=== PATIENT | female | born 1970 | race Caucasian/White ===

== ENCOUNTER → 2023-09-07 14:41 | Outpatient (REF) | payer OTHER, SELFPAY | LOC: RCS 14:41 | PROVIDERS: ATTENDING PHYSICIAN Internal Medicine; FAMILY PHYSICIAN Family Medicine | DX: R07.89 Other chest pain (principal); R06.02 Shortness of breath | CPT/HCPCS: 93017 ==

== ENCOUNTER → 2023-11-23 07:25 | Outpatient (REF) | payer OTHER, SELFPAY | LOC: REG 07:25 | PROVIDERS: FAMILY PHYSICIAN Family Medicine | DX: D72.828 Other elevated white blood cell count (principal) | CPT/HCPCS: 36415 ==

== ENCOUNTER → 2024-02-14 10:15 | Outpatient (REF) | payer OTHER, SELFPAY | LOC: PNTC 10:15 | PROVIDERS: ATTENDING PHYSICIAN Obstetrics & Gynecology | DX: O09.819 Supervision of pregnancy resulting from assisted reproductive technology, unspecified trimester (principal); O10.119 Pre-existing hypertensive heart disease complicating pregnancy, unspecified trimester; O99.280 Endocrine, nutritional and metabolic diseases complicating pregnancy, unspecified trimester; O09.519 Supervision of elderly primigravida, unspecified trimester; O99.210 Obesity complicating pregnancy, unspecified trimester | CPT/HCPCS: 36415; 76801; 76813 ==

== ENCOUNTER → 2024-03-14 11:12 | Outpatient (REF) | payer OTHER, SELFPAY | LOC: PNTC 11:12 | PROVIDERS: ATTENDING PHYSICIAN Obstetrics & Gynecology | DX: O09.519 Supervision of elderly primigravida, unspecified trimester (principal); O99.280 Endocrine, nutritional and metabolic diseases complicating pregnancy, unspecified trimester; O09.819 Supervision of pregnancy resulting from assisted reproductive technology, unspecified trimester; O10.119 Pre-existing hypertensive heart disease complicating pregnancy, unspecified trimester; O99.210 Obesity complicating pregnancy, unspecified trimester | CPT/HCPCS: 76805 ==

== ENCOUNTER → 2024-04-18 07:06 | Outpatient (REF) | payer OTHER, SELFPAY | LOC: PNTC 07:06 | PROVIDERS: ATTENDING PHYSICIAN Obstetrics & Gynecology | DX: O09.519 Supervision of elderly primigravida, unspecified trimester (principal); O99.280 Endocrine, nutritional and metabolic diseases complicating pregnancy, unspecified trimester; O09.819 Supervision of pregnancy resulting from assisted reproductive technology, unspecified trimester; O10.119 Pre-existing hypertensive heart disease complicating pregnancy, unspecified trimester; O99.210 Obesity complicating pregnancy, unspecified trimester; I80.8 Phlebitis and thrombophlebitis of other sites; O10.019 Pre-existing essential hypertension complicating pregnancy, unspecified trimester | CPT/HCPCS: 76811 ==

== ENCOUNTER → 2024-05-16 08:31 | Outpatient (REF) | payer OTHER, SELFPAY | LOC: PNTC 08:31 | PROVIDERS: ATTENDING PHYSICIAN Student in an Organized Health Care Education/Training Program | DX: O09.529 Supervision of elderly multigravida, unspecified trimester (principal); O99.210 Obesity complicating pregnancy, unspecified trimester; O16.9 Unspecified maternal hypertension, unspecified trimester; O99.280 Endocrine, nutritional and metabolic diseases complicating pregnancy, unspecified trimester | CPT/HCPCS: 76816 ==

== ENCOUNTER 2024-07-05 10:26 | Observation (INO) | payer OTHER, SELFPAY ==
[2024-07-05] MEDS: TRANDATE 200 MG PO (10:51)
[2024-07-05 11:04] LABS: Hematocrit 36.8 % (37.0-47.0); Hemoglobin 12.4 g/dL (12.0-16.0); Mean Corp Hgb Conc. 33.7 g/dL (33.0-37.0); Mean Corpuscular Hgb 33.9 pg (27.0-31.0); Mean Corpuscular Volume 100.5 fL (81.0-99.0); Mean Platelet Volume 10.7 fL (7.4-10.4); Platelet Count 199 10^3/uL (130-400); Red Blood Cell Count 3.66 10^6/uL (4.20-5.40); Red Cell Dist. Width 13.2 % (11.5-14.5); White Blood Cell Count 8.1 10^3/uL (4.8-10.8)
[2024-07-05 11:05] VITALS: BP 132/69; BMI 40.2
[2024-07-05 11:21] LABS: ALT (SGPT) 37 U/L (0-35); AST (SGOT) 37 U/L (14-36); Albumin 3.1 g/dl (3.5-5.0); Alkaline Phosphatase 79 U/L (38-126); Blood Urea Nitrogen 7 mg/dl (7-17); Calcium 9.2 mg/dl (8.4-10.2); Carbon Dioxide 24 mmol/L (22-30); Chloride 104 mmol/L (98-107); Estimated Creatinine Clearance > 125 ml/min; Glucose 89 mg/dl (70-99); Sodium 135 mmol/L (135-145); Total Bilirubin 0.5 mg/dl (0.2-1.3); Total Protein 5.7 g/dl (6.3-8.2); eGFR > 60.00
[2024-07-05 11:54] LABS: Urine Protein 8 mg/dl
== END 2024-07-05 12:30 | disposition home or self-care (01) ==
LOC: PNTC-IN 10:26
PROVIDERS: ADMITTING PHYSICIAN Obstetrics & Gynecology; ATTENDING PHYSICIAN Student in an Organized Health Care Education/Training Program
DX: O10.013 Pre-existing essential hypertension complicating pregnancy, third trimester (principal); O09.523 Supervision of elderly multigravida, third trimester; O99.213 Obesity complicating pregnancy, third trimester; O09.813 Supervision of pregnancy resulting from assisted reproductive technology, third trimester; Z3A.32 32 weeks gestation of pregnancy
CPT/HCPCS: 59025; 80053; 82570; 84156; 85027; G0378

== ENCOUNTER → 2024-07-09 09:51 | Outpatient (REF) | payer OTHER, SELFPAY | LOC: PNTC 09:51 | PROVIDERS: ATTENDING PHYSICIAN Obstetrics & Gynecology | DX: O09.819 Supervision of pregnancy resulting from assisted reproductive technology, unspecified trimester (principal); O99.280 Endocrine, nutritional and metabolic diseases complicating pregnancy, unspecified trimester | CPT/HCPCS: 59025 ==

== ENCOUNTER → 2024-07-12 10:01 | Outpatient (REF) | payer OTHER, SELFPAY | LOC: PNTC 10:01 | PROVIDERS: ATTENDING PHYSICIAN Student in an Organized Health Care Education/Training Program | DX: O99.210 Obesity complicating pregnancy, unspecified trimester (principal); O09.529 Supervision of elderly multigravida, unspecified trimester | CPT/HCPCS: 59025 ==

== ENCOUNTER → 2024-07-16 10:24 | Outpatient (REF) | payer OTHER, SELFPAY | LOC: PNTC 10:24 | PROVIDERS: ATTENDING PHYSICIAN Obstetrics & Gynecology | DX: O09.819 Supervision of pregnancy resulting from assisted reproductive technology, unspecified trimester (principal); O99.280 Endocrine, nutritional and metabolic diseases complicating pregnancy, unspecified trimester | CPT/HCPCS: 59025 ==

== ENCOUNTER → 2024-07-19 09:46 | Outpatient (REF) | payer OTHER, SELFPAY | LOC: PNTC 09:46 | PROVIDERS: ATTENDING PHYSICIAN Student in an Organized Health Care Education/Training Program | DX: O99.210 Obesity complicating pregnancy, unspecified trimester (principal); O09.529 Supervision of elderly multigravida, unspecified trimester | CPT/HCPCS: 59025 ==

== ENCOUNTER → 2024-07-23 09:50 | Outpatient (REF) | payer OTHER, SELFPAY | LOC: PNTC 09:50 | PROVIDERS: ATTENDING PHYSICIAN Obstetrics & Gynecology | DX: O09.519 Supervision of elderly primigravida, unspecified trimester (principal) | CPT/HCPCS: 59025 ==

== ENCOUNTER 2024-07-27 09:47 | Observation (INO) | payer OTHER, SELFPAY ==
[2024-07-27 10:37] VITALS: BP 111/68; BMI 42.1
== END 2024-07-27 12:22 | disposition home or self-care (01) ==
LOC: LDRP 09:47
PROVIDERS: ADMITTING PHYSICIAN Obstetrics & Gynecology
DX: O32.1XX0 Maternal care for breech presentation, not applicable or unspecified (principal); Z3A.35 35 weeks gestation of pregnancy
CPT/HCPCS: 76815; 76819; G0378

== ENCOUNTER → 2024-07-30 10:13 | Outpatient (REF) | payer OTHER, SELFPAY | LOC: PNTC 10:13 | PROVIDERS: ATTENDING PHYSICIAN Obstetrics & Gynecology | DX: O09.819 Supervision of pregnancy resulting from assisted reproductive technology, unspecified trimester (principal); E03.9 Hypothyroidism, unspecified; O99.280 Endocrine, nutritional and metabolic diseases complicating pregnancy, unspecified trimester; O10.019 Pre-existing essential hypertension complicating pregnancy, unspecified trimester | CPT/HCPCS: 59025 ==

== ENCOUNTER → 2024-08-06 10:17 | Outpatient (REF) | payer OTHER, SELFPAY | LOC: PNTC 10:17 | PROVIDERS: ATTENDING PHYSICIAN Obstetrics & Gynecology | DX: O09.819 Supervision of pregnancy resulting from assisted reproductive technology, unspecified trimester (principal); O99.280 Endocrine, nutritional and metabolic diseases complicating pregnancy, unspecified trimester | CPT/HCPCS: 59025 ==

== ENCOUNTER → 2024-08-06 12:10 | Outpatient (REF) | payer OTHER, SELFPAY | LOC: RAD 12:10 | PROVIDERS: ATTENDING PHYSICIAN Obstetrics & Gynecology; FAMILY PHYSICIAN Family Medicine | DX: O09.523 Supervision of elderly multigravida, third trimester (principal) | CPT/HCPCS: 76819 ==

== ENCOUNTER → 2024-08-09 09:41 | Outpatient (REF) | payer OTHER, SELFPAY | LOC: PNTC 09:41 | PROVIDERS: ATTENDING PHYSICIAN Student in an Organized Health Care Education/Training Program | DX: O09.529 Supervision of elderly multigravida, unspecified trimester (principal); O99.210 Obesity complicating pregnancy, unspecified trimester | CPT/HCPCS: 59025 ==

== ENCOUNTER → 2024-08-13 10:20 | Outpatient (REF) | payer OTHER, SELFPAY | LOC: PNTC 10:20 | PROVIDERS: ATTENDING PHYSICIAN Obstetrics & Gynecology | DX: O09.819 Supervision of pregnancy resulting from assisted reproductive technology, unspecified trimester (principal); E05.90 Thyrotoxicosis, unspecified without thyrotoxic crisis or storm | CPT/HCPCS: 59025 ==

== ENCOUNTER 2024-08-13 20:18 | Inpatient (IN) | payer OTHER, SELFPAY ==
[2024-08-13 21:11] VITALS: BP 129/73; BMI 41.2
[2024-08-13 21:46] LABS: % Basophils 0.2 % (0-2); % Immature Granulocytes 0.3 % (0-0.5); % Monocytes 7.3 % (1.7-9.3); % Neutrophils 63.2 % (42.2-75.2); Absolute Eosinophils 0.1 10^3/uL (0-0.7); Absolute Lymphocytes 2.5 10^3/uL (1.2-3.4); Absolute Monocytes 0.7 10^3/uL (0.1-0.6); Absolute Neutrophils 5.7 10^3/uL (1.4-6.5); Hematocrit 36.4 % (37.0-47.0); Hemoglobin 12.2 g/dL (12.0-16.0); Mean Corp Hgb Conc. 33.5 g/dL (33.0-37.0); Mean Corpuscular Hgb 33.4 pg (27.0-31.0); Mean Corpuscular Volume 99.7 fL (81.0-99.0); Nucleated Red Blood Cells % 0 %; Platelet Count 214 10^3/uL (130-400); Red Blood Cell Count 3.65 10^6/uL (4.20-5.40); Red Cell Dist. Width 13.4 % (11.5-14.5)
[2024-08-13] MEDS: CYTOTEC 50 MICROGRAM VAG (21:47)
[2024-08-13 22:03] LABS: ALT (SGPT) 34 U/L (0-35); AST (SGOT) 41 U/L (14-36); Albumin 3.2 g/dl (3.5-5.0); Alkaline Phosphatase 130 U/L (38-126); Blood Urea Nitrogen 16 mg/dl (7-17); Calcium 9.6 mg/dl (8.4-10.2); Carbon Dioxide 21 mmol/L (22-30); Chloride 104 mmol/L (98-107); Estimated Creatinine Clearance 113 ml/min; Glucose 87 mg/dl (70-99); Potassium 4.3 mmol/L (3.5-5.1); Sodium 132 mmol/L (135-145); Total Bilirubin 0.7 mg/dl (0.2-1.3); Total Protein 5.9 g/dl (6.3-8.2); eGFR > 60.00
[2024-08-13] MEDS: VALTREX 500 MG PO (22:37)
[2024-08-14] MEDS: LR 1000 IV ×3 (03:10→15:08)
[2024-08-14] MEDS: SYNTHROID 50 MCG PO (06:22)
[2024-08-14] MEDS: PLAQUENIL 200 MG PO ×2 (08:11→20:11)
[2024-08-14] MEDS: TRANDATE 200 MG PO ×2 (08:11→20:11)
[2024-08-14] MEDS: VALTREX 500 MG PO (08:11)
[2024-08-14] MEDS: BICITRA 30 ML PO (09:54)
[2024-08-14] MEDS: TYLENOL 1000 MG PO (09:54)
[2024-08-14] MEDS: ANCEF 10 IV (09:56)
[2024-08-14] MEDS: ZOFRAN 4 MG IV (15:08)
[2024-08-14] MEDS: PITOCIN 30 UNITS/NSS 500 ML IV (15:09)
[2024-08-14] MEDS: BENADRYL 25 MG IV (16:22)
[2024-08-14] MEDS: TORADOL 15 MG IV ×2 (17:41→23:43)
--- NOTE | 2024-08-14 18:30 | OR.RPT ---
Operative Report
Operative Report
Preop diagnosis: IUP @38.2, non-reassuring heart tones, intolerance of labor, AMA, cHTN, BMI 40
Postop diagnosis: same
Procedure: Primary low transverse section
Surgeon: Nithin
Anesthesia: Spinal
QBL: 245mL
Complications: none
Graham catheter draining clear urine before and after the procedure
Findings: viable female infant born at 1123, Apgars 8/9, normal appearing uterus, bilateral fallopian tubes and ovaries. Uterus slightly boggy at the end of the procedure. Cytotec 800mcg NM given. Uterus firm with minimal bleeding on fundal prior to
leaving the OR.
Indication: Patient is a 54yo at 38.2 who presents to Labor and Delivery for induction of labor for chronic hypertension and advanced maternal age. Her induction was started with 50mcg of Cytotec PV. Overnight, FHT were intermittently with
prolonged and late decelerations. Her cervix remained closed. Pitocin was ordered, but not able to be started secondary to intermittent category 2 tracing. Discussed with patient that there is intolerance of labor and she is remote from
delivery so primary section was recommended. Risks, benefits and alternatives were discussed with patient and all questions were answered. Consents were signed. Anesthesia was notified.
Procedure: Patient was taken to the operating room where spinal anesthesia was administered and found to be adequate. 2g of Ancef was given for antibiotic prophylaxis. The pannus was taped up with Ioban. The abdomen was prepped with ChloraPrep. The
patient was draped in the normal sterile fashion. She was placed in the dorsal supine position with a left lateral tilt. A Pfannenstiel incision was made with a 10 blade and carried down to the fascia with a scalpel. Hemostasis achieved with Bovie.
The fascia was incised and dissected laterally with Terry scissors. The superior aspect of the fascia was grasped with Katie clamps. The underlying rectus fascia was sharply dissected with Terry scissors. In a similar fashion the inferior aspect of
the fascia was elevated with Katie clamps and the rectus muscle was dissected off with Terry scissors. The rectus muscles were down the midline to the level of the pubic symphysis with manual dissection. The peritoneum was bluntly entered
and extended using manual traction and Metzenbaum scissors.
Gooden retractor and bladder blade were placed revealing good visualization of the bladder. The vesicouterine peritoneum was identified. A thin lower uterine segment was noted. The lower uterine segment was incised with a scalpel. Copious amount
of clear fluid noted at entry into the cavity. The uterine incision was extended bluntly with lateral and upward traction.
The fetus was in cephalic presentation. The head was elevated out of the pelvis with special attention paid to avoid using the uterine incision as a fulcrum. Gentle fundal pressure was applied one the head was brought to the incision. The head
delivered through the hysterotomy and the rest of the delivered without difficulty. Delayed cord clamping was performed. Cord gases were collected. The was handed off to the cigarette stamper. IV oxytocin was started to facilitate uterine
contractions. The placenta was manually extracted and sent to pathology for evaluation. The uterus was exteriorized. Allis clamps were placed at the apices of the hysterotomy. The inside of the uterus was wiped with a lap sponge to assure complete
removal of placental membranes. Fundal massage was performed and uterus noted to be firm. The uterine incision was closed with 0 Vicryl in a running locked fashion. A horizontal imbricating stitch was done on the hysterotomy with 0 Vicryl. The
hysterotomy was inspected and noted to be hemostatic. The uterus was placed back in the abdomen. Blood clots and fluid were wiped out of the abdomen and pelvis with moist laparotomy sponges. The hysterotomy was examined again and noted to be
hemostatic.
The rectus muscles were inspected and noted to be hemostatic. The fascial layer was closed in a running continuous fashion using 1 PDS. The subcutaneous tissue was copiously irrigated and any small bleeding vessels were cauterized with Bovie
cautery. The subcutaneous tissue was reapproximated in a running continuous fashion with 2-0 Plain. The skin was closed with 4-0 Vicryl in a subcuticular fashion. The incision was covered with skin glue and Prima Seal dressing. The patient tolerated
the procedure well. All sponge and instrument counts were correct times two. The uterus was slightly boggy after the procedure. 800mcg Cytotec given NM. There was minimal bleeding on fundal check. The patient was taken to the recovery room in stable
condition.
--- NOTE | 2024-08-14 19:13 | HPS.HSE ---
Family Physician
-
Family Physician: INTERVIEWE UNKNOWN - PT NOT
Chief Complaint
-
induction of labor
History of Present Illness
Patient is a 54yo who presented to Labor and Delivery for IOL for AMA and cHTN. She had no complaints on admission. Her induction was started with Cytotec 50mcg PV. There was intolerance of labor and section was recommended.
complications:
- IVF with egg donor
- hypothyroidism
- HSV
- autoimmune disorder
- superficial thrombophlebitis, was on Lovenox
- cHTN, on labetalol
- BMI 40
- AMA
PN labs Apos ab neg, cbc nml, Hepbsag neg, Hepc ab neg, HGIV neg, Rub im, RPR NR, nml gtt, gc/chlam/gbs neg, Rub Im
PMHx: hypothyroidism, varicose veins, HSV, autoimmune disorder, superficial thrombophlebitis, cHTN, obesity
Meds: ASA 81mg daily, VitD3, Lovenox 60mg qAM/40mg qPM, hydroxycholoquine 200mg BID, labetalol 200mg BID, Synthroid 50mcg, Metformin 500mg BID, PNV, vitamin E
Surghx: cholecystectomy, D&C
NKDA
Socialhx: denies tobacco, etoh or illicit drug use
Famhx: Mother w/ HTN, DVT, Father w/ HTN, LA, and stroke, maternal grandfather w/ colon cancer
OBHx: , SABx7
Medical History
Past Medical History
Past Medical History: Reports Hypothyroidism
Additional Past Medical History:
hypothyroidism, varicose veins, HSV, autoimmune disorder, superficial thrombophlebitis, cHTN, obesity
Past Surgical History: Reports Cholecystectomy and Gynocological
Additional Past Surgical History:
cholecytectomy, D&C
Social History
Tobacco: Non-smoker
Alcohol: None
Drug: None
Family History
Family History: Cancer and Hypertension
Allergies / Home Medications
Allergies reflects when Allergies were last updated in [facility].
Home Medications with original date entered in [facility]
Allergy/Medication List:
Meds: ASA 81mg daily, VitD3, Lovenox 60mg qAM/40mg qPM, hydroxycholoquine 200mg BID, labetalol 200mg BID, Synthroid 50mcg, Metformin 500mg BID, PNV, vitamin E
NKDA
Review of Systems
-
A 12 point ROS was completed and negative except as noted: Yes
Physical Exam
Vital Signs
Vital Signs
Temp Pulse Resp BP
97.9 F 79 16 144/88
08/13/24 21:11 08/14/24 08:11 08/13/24 21:11 08/14/24 08:11
Physical Exam
General: Well Developed and Well Nourished
HEENT: NormoCephalic
Respiratory: Non Labored Respirations
Cardiac: Regular Rhythm
GI: Non Tender
Skin: Warm and Dry
Neuro: Awake, Alert and Oriented
Psych: Calm
Laboratory Results
-
08/13/24 21:30
08/13/24 21:30
Laboratory Results
Total Bilirubin 0.7 mg/dl (0.2-1.3) 08/13/24 21:30
AST 41 U/L (14-36) H 08/13/24 21:30
ALT 34 U/L (0-35) 08/13/24 21:30
Alkaline Phosphatase 130 U/L (38-126) H 08/13/24 21:30
Impression/Plan
-
IMPRESSION:
Patient is a 54yo @38.2 who presented to Labor and Delivery for IOL for AMA and cHTN
PLAN:
- IOL was started with Cytotec 50mcg PV
- There was intolerance of labor with an intermittent category 2 tracing with prolonged decelerations and late decelerations. She was remote from delivery with inability to start Pitocin. Primary section was recommended. Risks,
benefits, and alternatives discussed including bleeding, infection, damage to surround structure and need for future operations. Consents were signed and anethesia notified
- 2g of Ancef ordered for antibiotic prophylaxis
[2024-08-14] MEDS: GLUCOPHAGE PO (21:42)
--- NOTE | 2024-08-15 02:49 | DOWNTIME ---
There was a [employer] Client Voice Professor Downtime on 08/15/2024 from 0100 to 08/15/2023 at 0235 . Downtime documentation of patient's care, including medication administrations, has been reconciled in the electronic record per guidelines. Refer to the
patient's paper chart under the miscellaneous tab to see printed paper medication records and downtime forms.
[2024-08-15] MEDS: SYNTHROID 50 MCG PO (06:00)
[2024-08-15] MEDS: TORADOL 15 MG IV ×2 (06:00→11:42)
[2024-08-15 06:27] LABS: Hematocrit 35.8 % (37.0-47.0); Hemoglobin 11.9 g/dL (12.0-16.0); Mean Corp Hgb Conc. 33.2 g/dL (33.0-37.0); Mean Corpuscular Hgb 33.3 pg (27.0-31.0); Mean Corpuscular Volume 100.3 fL (81.0-99.0); Mean Platelet Volume 10.8 fL (7.4-10.4); Platelet Count 201 10^3/uL (130-400); Red Blood Cell Count 3.57 10^6/uL (4.20-5.40); Red Cell Dist. Width 13.5 % (11.5-14.5); White Blood Cell Count 9.1 10^3/uL (4.8-10.8)
[2024-08-15 07:14] LABS: ALT (SGPT) 33 U/L (0-35); AST (SGOT) 54 U/L (14-36); Albumin 2.7 g/dl (3.5-5.0); Alkaline Phosphatase 102 U/L (38-126); Blood Urea Nitrogen 17 mg/dl (7-17); Calcium 8.9 mg/dl (8.4-10.2); Carbon Dioxide 23 mmol/L (22-30); Chloride 104 mmol/L (98-107); Estimated Creatinine Clearance 99 ml/min; Glucose 83 mg/dl (70-99); Potassium 3.9 mmol/L (3.5-5.1); Sodium 132 mmol/L (135-145); Total Bilirubin 0.7 mg/dl (0.2-1.3); Total Protein 5.2 g/dl (6.3-8.2); eGFR > 60.00
--- NOTE | 2024-08-15 07:56 | W.PN.ANS.POP ---
Anesthesia Post Operative
- Anesthesia Post Op Note
Vital Signs Stable-See Nursing Note: Yes
Airway Patent: Yes
Adequate Pain Control: Yes
Change in Mental Status: No
Current Postoperative Nausea & Vomiting: No
Anesthesia Complications: No
General Anesthetic Recall: No
Unplanned Admission: No
Post Op Hydration Adequate: Yes
[2024-08-15] MEDS: LOVENOX 60 MG SC (08:17)
[2024-08-15] MEDS: TRANDATE 200 MG PO ×2 (08:17→20:58)
[2024-08-15] MEDS: SENOKOT-S 1 TABLET PO (08:18)
[2024-08-15] MEDS: VITAMIN D3 (cholecalciferol) 125 MCG PO (08:18)
[2024-08-15] MEDS: PLAQUENIL 200 MG PO ×2 (08:18→20:58)
[2024-08-15] MEDS: GLUCOPHAGE 500 MG PO ×2 (08:19→20:58)
--- NOTE | 2024-08-15 14:39 | CM ---
Met with new parents Svetlana and Kyle at bedside
Parents report they have named their Noemy Mota
Mom reports she plans to breast feed and will need a breast pump
Mom reports she has supplies for infant including car seat and crib
Mom reports she has support from /family/friends
Mom given breast pump information/order form to review
CM will check back with mom regarding ordering breast pump
Plan - CM will f/u with Mom regarding breast pump order
[2024-08-15] MEDS: LOVENOX 40 MG SC (17:28)
[2024-08-15] MEDS: TYLENOL 650 MG PO ×2 (17:29→23:55)
[2024-08-15] MEDS: MOTRIN 600 MG PO ×2 (17:30→23:56)
[2024-08-16] MEDS: SYNTHROID 50 MCG PO (06:21)
[2024-08-16] MEDS: TYLENOL 650 MG PO ×3 (06:25→23:45)
[2024-08-16] MEDS: MOTRIN 600 MG PO ×3 (06:25→23:45)
[2024-08-16] MEDS: LOVENOX 60 MG SC (08:12)
[2024-08-16 08:35] LABS: ALT (SGPT) 41 U/L (0-35); AST (SGOT) 64 U/L (14-36)
[2024-08-16] MEDS: TRANDATE 200 MG PO ×2 (08:47→20:06)
[2024-08-16] MEDS: SENOKOT-S 1 TABLET PO (08:48)
[2024-08-16] MEDS: VITAMIN D3 (cholecalciferol) 125 MCG PO (08:48)
[2024-08-16] MEDS: PLAQUENIL 200 MG PO ×2 (08:48→20:06)
[2024-08-16] MEDS: GLUCOPHAGE 500 MG PO ×2 (08:50→20:06)
--- NOTE | 2024-08-16 11:16 | CM ---
Addendum entered by Enedina Lake 08/16/24 14:40:
Met with parents at bedside with
Mom discussed breast pump options with - mom requesting the Spectra 2 pump
Rx and face sheet faxed to [facility] - [phone]
Spoke with Hina at [facility] - aware of order
Original Note:
Spoke with Mom Svetlana
Discussed breast pump - mom reports she has not made a decision regarding breast pump - will f/u later today
Parents plan to have follow at [facility]
[2024-08-16] MEDS: LOVENOX 40 MG SC (18:15)
[2024-08-17 04:36] LABS: % Basophils 0.5 % (0-2); % Eosinophils 3.4 % (0-6); % Immature Granulocytes 0.3 % (0-0.5); % Lymphocytes 40.2 % (20.5-51.1); % Monocytes 9.2 % (1.7-9.3); % Neutrophils 46.4 % (42.2-75.2); Absolute Eosinophils 0.2 10^3/uL (0-0.7); Absolute Lymphocytes 2.4 10^3/uL (1.2-3.4); Absolute Monocytes 0.5 10^3/uL (0.1-0.6); Absolute Neutrophils 2.7 10^3/uL (1.4-6.5); Hematocrit 32.4 % (37.0-47.0); Hemoglobin 10.9 g/dL (12.0-16.0); Mean Corp Hgb Conc. 33.6 g/dL (33.0-37.0); Mean Corpuscular Hgb 34.2 pg (27.0-31.0); Mean Corpuscular Volume 101.6 fL (81.0-99.0); Mean Platelet Volume 11.2 fL (7.4-10.4); Nucleated Red Blood Cells % 0 %; Platelet Count 175 10^3/uL (130-400); Red Blood Cell Count 3.19 10^6/uL (4.20-5.40); Red Cell Dist. Width 13.8 % (11.5-14.5); White Blood Cell Count 5.9 10^3/uL (4.8-10.8)
[2024-08-17 04:59] LABS: ALT (SGPT) 38 U/L (0-35); AST (SGOT) 48 U/L (14-36)
[2024-08-17] MEDS: SYNTHROID 50 MCG PO (06:08)
[2024-08-17] MEDS: TYLENOL 650 MG PO (06:09)
[2024-08-17] MEDS: MOTRIN 600 MG PO (06:09)
--- NOTE | 2024-08-17 07:37 | W.DS.TRANS ---
DC Summary - [employer]
-
Discharge Instructions:
Discharge Diagnosis/Procedures Advanced maternal age; IVF ;HX
superficial thrombophlebitis; 38w2d;
Induction of labor, epidural, Nonreassuring
heart rate/ intolerance of labor,
Primary low transverse section,
elevated LFTs
Diet Regular
Activity No strenuous activity
Driving Restrictions No driving for 2 weeks
Bathing Restrictions OK to Shower
Instructions:
Stand-Alone Forms: [facility] Delivery
Changes to Home Medications: No
Discharge Medications:
DC Medications w/original date entered in [facility]
cholecalciferol (vitamin D3) 125 mcg (5,000 unit) tablet (Vitamin D3) 125 mcg PO DAILY 07/05/24
enoxaparin 40 mg/0.4 mL subcutaneous syringe (Lovenox) 40 mg SC DAILY 07/05/24
enoxaparin 60 mg/0.6 mL subcutaneous syringe (Lovenox) 60 mg SC DAILY 07/05/24
hydroxychloroquine 200 mg tablet 200 mg PO BID 07/05/24
labetalol 200 mg tablet 200 mg PO BID 07/05/24
levothyroxine 50 mcg tablet 50 mcg PO DAILY 07/05/24
metformin 500 mg tablet 500 mg PO BID 07/05/24
prenat.vits,roderick,ezt-ojnm-afgjr 1 tab DAILY 07/05/24
vitamin E 400 unit tablet 45 mg PO DAILY 07/05/24
ibuprofen 600 mg tablet 600 mg PO Q6HPRN PRN cramps #90 tabs 08/17/24
labetalol 200 mg tablet 200 mg PO BID #90 tabs 08/17/24
Home Medication Changes
Pending Results: No
Additional Pending Results:
placenta
Total time spent discharging patient (in min): 20
[2024-08-17] MEDS: TRANDATE 200 MG PO (07:51)
[2024-08-17] MEDS: PLAQUENIL 200 MG PO (07:52)
[2024-08-17] MEDS: VITAMIN D3 (cholecalciferol) 125 MCG PO (07:52)
[2024-08-17] MEDS: GLUCOPHAGE 500 MG PO (07:52)
[2024-08-17] MEDS: SENOKOT-S 1 TABLET PO (07:53)
[2024-08-17] MEDS: LOVENOX 60 MG SC (07:54)
[2024-08-17 13:48] LABS: Syphilis/T. pallidum Ab Reflex Negative (Negative)
== END 2024-08-17 14:48 | disposition home or self-care (01) | DRG 787 ==
LOC: LDRP 20:18
PROVIDERS: Obstetrics & Gynecology; Student in an Organized Health Care Education/Training Program; ADMITTING PHYSICIAN Obstetrics & Gynecology
PROC: 3E0P7VZ Introduction of Hormone into Female Reproductive, Via Natural or Artificial Opening (ICD-10-PCS; 2024-08-13)
PROC: 4A1HXCZ Monitoring of Products of Conception, Cardiac Rate, External Approach (ICD-10-PCS; 2024-08-13)
PROC: 10D00Z1 Extraction of Products of Conception, Low, Open Approach (ICD-10-PCS; 2024-08-14)
DX: O10.92 Unspecified pre-existing hypertension complicating childbirth (principal); O87.0 Superficial thrombophlebitis in the puerperium; O99.12 Other diseases of the blood and blood-forming organs and certain disorders involving the immune mechanism complicating childbirth; O98.52 Other viral diseases complicating childbirth; Z37.0 Single live birth; O76 Abnormality in fetal heart rate and rhythm complicating labor and delivery; O99.214 Obesity complicating childbirth; O99.284 Endocrine, nutritional and metabolic diseases complicating childbirth; E03.9 Hypothyroidism, unspecified; O87.4 Varicose veins of lower extremity in the puerperium; B00.9 Herpesviral infection, unspecified; D89.89 Other specified disorders involving the immune mechanism, not elsewhere classified; Z3A.38 38 weeks gestation of pregnancy; Z79.01 Long term (current) use of anticoagulants
CPT/HCPCS: 88307; 36415; 80053; 84450; 84460; 85025; 85027; 86780; 86850; 86900; 86901

== ENCOUNTER 2024-08-18 20:46 | Emergency (ER) | payer OTHER, SELFPAY ==
[2024-08-18 20:59] VITALS: BP 146/92
--- NOTE | 2024-08-18 22:45 | ED.GENMED ---
History of Present Illness
General
Chief Complaint: Problems
Source: patient
Exam Limitations: none
Time Seen by Provider: 08/18/24 21:19
Nursing documentation reviewed up to this point in time: agreed with
History of Present Illness
History of Present Illness:
54 yo female presents emergency department due to concerns that her wound is draining and that her abdomen feels full. She notes some bruising but it is likely from her Lovenox.
Past History
Past History
ED Past Medical History: HTN
ED Past Surgical History: Cholecystectomy, , Gynecological (IVF) and Other (Varicose veins)
Social History
Tobacco: Non-smoker
Alcohol: Occasional
Personal:
Living: with family
Family History
Family History: CAD
Review of Systems
Review of Systems
Allergies reviewed?: Yes
All Other Systems: Not applicable
Constitutional: Reports no symptoms
EENT: Reports no symptoms
Respiratory: Reports no symptoms
Cardiac: Reports no symptoms
ABD/GI: Reports other (Abdominal swelling and bruising)
: Reports no symptoms
Musculoskeletal: Reports no symptoms
Skin: Reports no symptoms
Neurological: Reports no symptoms
Endocrine: Reports no symptoms
Hematologic/Lymphatic: Reports no symptoms
Psychiatric: Reports no symptoms
Phy Exam
Physical Exam
Physical Exam:
Physical Exam
General: no apparent distress, not acutely ill
Neck: supple. no meningeal signs. normal posterior pharynx
Heart: s1/s2 regular rate and rhythm, no murmur. equal radial
pulses.
HEENT: Pupils equal round reactive to light, EOMI
Lungs: no acute respiratory distress. clear bilaterally
Abdomen: normal bowel sounds. not tender. no CVAT
Neuro: alert and oriented. no focal neurological deficits cranial nerves II through XII intact
Skin: no rash, ecchymosis lower abdomen, site of Lovenox shots, incision clean dry and intact
Psychiatric: well kept. interactive and cooperative
Extremities: no edema. no calf tenderness. negative homans. good distal pulses
Course
Vital Signs
Initial and Last Documented VS:
Initial Vital Signs
Temp Pulse Resp BP Pulse Ox
98.6 F 84 20 146/92 98
08/18/24 20:59 08/18/24 20:59 08/18/24 20:59 08/18/24 20:59 08/18/24 20:59
Last Documented Vital Signs
Temp Pulse Resp BP Pulse Ox
98.6 F 84 20 146/92 98
08/18/24 20:59 08/18/24 20:59 08/18/24 20:59 08/18/24 20:59 08/18/24 20:59
Information
Weeks gestation: N/A
Location: N/A
MDM/Problems Addressed
Differential Diagnosis Includes:
Wound dehiscence, seroma
MDM/Problems Addressed:
54-year-old female with wound check, no signs of infection or dehiscence. Stable for discharge.
Chronic conditions affecting care: Previous abdomnial surgery
Acute Exacerbation and/or Progression of Chronic Illness: Previous abdomnial surgery
*Pulse Oximetry
Patient hypoxic: no
*Critical Care Note
Total Time (30-74mins, 75-104mins- exclusive of procedures): Not Applicable
Patient Management
Social determinants of health affecting care: Living situation
Discussion with other providers: Logistics Assistant (Discussed with Dr. Brown, DIRECTOR DIVERSITY, who recommends discharge and outpatient follow-up)
Escalation/DeEscalation of care consider admission/obs:
Admit not indicated
ED Attending Note
-
Portions of this chart may have been created with voice recognition software.� Occasional wrong word or��sound alike� substitutions may have occurred due to the inherent limitations of voice recognition software.
Discharge Plan
Departure
Patient Disposition: Home (Routine Discharge)
Date of Disposition: 08/18/24
Time of Disposition: 23:28
Patient with high blood pressure during this ER visit?: Yes
Condition: Good
Discharge Problem:
Encounter for postoperative wound check
Instructions: Wound Care (DC), BLOOD PRESSURE
Prescriptions:
No Action
labetalol 200 mg Tablet
200 mg PO BID
metformin 500 mg Tablet
500 mg PO BID
hydroxychloroquine 200 mg Tablet
200 mg PO BID
levothyroxine 50 mcg Tablet
50 mcg PO DAILY
prenat.vits,roderick,vpq-epjn-ylnqp Tablet
1 tab DAILY
cholecalciferol (vitamin D3) [Vitamin D3] 125 mcg (5,000 unit) Tablet
125 mcg PO DAILY
vitamin E 400 unit Tablet
45 mg PO DAILY
enoxaparin [Lovenox] 60 mg/0.6 mL Syringe
60 mg SC DAILY
Rx Instructions:
in the morning
enoxaparin [Lovenox] 40 mg/0.4 mL Syringe
40 mg SC DAILY
Rx Instructions:
in the evening
labetalol 200 mg Tablet
200 mg PO BID Qty: 90 0RF
ibuprofen 600 mg Tablet
600 mg PO Q6HPRN PRN (Reason: cramps) Qty: 90 0RF
Referrals:
Iva Cobb MD [Family Provider] -
Jodi Weller DO [Active] - Call in 1-3 days for appt
Activity Restrictions/Additional Instructions:
keeps incision as dry as possible and do NOT scrub it but let soapy water run over it daily
Interventions
Interventions:
*Risk Screen - Suicide Last Done: 08/18/24 20:59
*Neglect/Abuse Screening Last Done: 08/18/24 20:59
ED-Female Genitourinary Assessment Last Done: 08/18/24 21:18
Discharge Date and Time
Print Language: ARMENIAN
== END 2024-08-18 23:47 | disposition home or self-care (01) ==
LOC: EMR 20:46
PROVIDERS: EMERGENCY PHYSICIAN Emergency Medicine; FAMILY PHYSICIAN Family Medicine
DX: Z48.89 Encounter for other specified surgical aftercare (principal); I10 Essential (primary) hypertension; Z90.49 Acquired absence of other specified parts of digestive tract
CPT/HCPCS: 99282

== ENCOUNTER → 2024-09-07 13:05 | Outpatient (REF) | payer OTHER, SELFPAY | LOC: RCS 13:05 | PROVIDERS: ATTENDING PHYSICIAN Internal Medicine; FAMILY PHYSICIAN Family Medicine | DX: M79.89 Other specified soft tissue disorders (principal) | CPT/HCPCS: 93306 ==

== ENCOUNTER → 2024-09-20 16:47 | Outpatient (REF) | payer OTHER, SELFPAY | LOC: RAD 16:47 | PROVIDERS: ATTENDING PHYSICIAN Physician Assistant | DX: M79.651 Pain in right thigh (principal) | CPT/HCPCS: 93971 ==